=== PATIENT | female | born 1930 | race Hispanic/Latino ===

== ENCOUNTER 2018-05-25 07:52 | Observation (INO) | payer OTHER ==
[2018-05-23 14:00] VITALS: BP 142/60
[2018-05-23 14:21] LABS: BASOPHILS % (AUTO) 0.5 % (0.0-5.0); HEMATOCRIT 34.6 % (36-48); LYMPHOCYTES % (AUTO) 26.2 % (21.0-51.0); MEAN CORPUSCULAR HEMOGLOBIN 30.4 pg (27.0-33.0); MONOCYTES % (AUTO) 8.4 % (3.0-13.0); NEUTROPHILS % (AUTO) 63.9 % (40.0-77.0); PLATELET COUNT (AUTO) 197 K/uL (130-400); RED BLOOD CELL COUNT(AUTO) 3.64 MIL/uL (4.00-5.50); RED CELL DISTRIBUTION WIDTH 13.9 % (11.0-15.5); WHITE BLOOD COUNT (AUTO) 6.2 K/uL (4.8-10.8)
[2018-05-23 14:31] LABS: CREATININE 0.8 mg/dL (0.5-1.5); POTASSIUM 4.4 mmol/L (3.5-5.1)
[2018-05-23 14:35] LABS: INR 1.02 (0.85-1.15); PARTIAL THROMBOPLASTIN TIME 27.1 SEC (26.3-35.5); PROTHROMBIN TIME 10.7 SEC (9.6-11.6)
--- NOTE | 2018-05-23 14:45 | NUR ---
CONSENT PER PT, DR. OBANDO DID NOT EXPLAIN PROCEDURE TO HER AND DOES NOT HAVE COMPLETE UNDERSTANDING. PT WANTS TO TALK TO MD PRIOR TO PROCEDURE BEFORE SIGNING CONSENT.
--- NOTE | 2018-05-23 15:35 | NUR ---
IODINE ALLERGY EDIE GOODSON, BELKIS PAGED TO NOTIFY PT'S IODINE ALLERGY. WAITING FOR CALL BACK
--- NOTE | 2018-05-24 10:12 | NUR ---
NOTE EDIE GOODSON, PAC NOTIFIED PT'S ALLERGY TO CONTRAST IODINE, NO FURTHER ORDERS GIVEN.
[2018-05-25] VITALS (11 sets, daily range): BP systolic 84–150; BP diastolic 33–71
[~2018-05-25] VITALS: Ht 157.5 cm; Wt 60.8 kg
[~2018-05-25 07:52] MED LIST: AMLO5TAB9 PO; B&C/1TAB2 PO; CETI10TA57 PO; DOCU100T PO; ERGO500014 PO; LEVE750T10 PO; METO-408 PO; ROSU5TAB11 PO; SODIUM CHLORIDE 0.9% 1000ML 1,000 ML IV SCH
[2018-05-25] MEDS ORDERED: DiphenhydrAMINE HCL 50 MG/ML VIAL IV SCH (09:24)
[2018-05-25] MEDS ORDERED: METHYLPREDNISOLONE SOD SUCC 125MG/2ML VIAL IVP SCH (09:24)
[2018-05-25] MEDS: SODIUM CHLORIDE 0.9% 1000ML 1,000 ML IV SCH ×3 (09:29→21:05)
[2018-05-25] MEDS ORDERED: MIDAZOLAM HCL 1 MG/ML 2ML VIAL ONE ×3 (11:06→11:55)
[2018-05-25] MEDS ORDERED: MEPERIDINE-PF 25 MG/ML SYG ONE ×3 (11:07→11:55)
[2018-05-25] MEDS ORDERED: IOHEXOL-350 50ML VIAL IV ONE (11:15)
[2018-05-25] MEDS ORDERED: METHYLPREDNISOLONE SOD SUCC 125MG/2ML VIAL ONE (11:19)
[2018-05-25] MEDS ORDERED: DiphenhydrAMINE HCL 50 MG/ML VIAL ONE (11:19)
[2018-05-25] MEDS ORDERED: BUPIVACAINE/PF 0.25% 50ML VIAL IJ ONE (11:30)
[2018-05-25] MEDS ORDERED: CEFAZOLIN SODIUM 1 GM VIAL ONE (11:30)
[2018-05-25] MEDS ORDERED: LIDOCAINE HCL 1% MDV 50ML VIAL ONE (11:30)
[2018-05-25] MEDS ORDERED: OCTYL 2-CYANOACRYLATE 1 EACH TP ONE (12:39)
[2018-05-25] MEDS ORDERED: ONDANSETRON HCL 4 MG/2 ML VIAL IV PRN (13:00)
[2018-05-25] MEDS ORDERED: CETIRIZINE HCL 5 MG TABLET PO PRN (13:00)
[2018-05-25] MEDS ORDERED: TEMAZEPAM 30 MG CAP PO PRN (13:00)
[2018-05-25] MEDS ORDERED: ACETAMINOPHEN-CODEINE 300/30MG TAB PO PRN ×2 (13:00)
[2018-05-25] MEDS ORDERED: PHARMACY COMMUNICATION MISC SCH (13:00)
--- NOTE | 2018-05-25 13:30 | NUR ---
S/P PACEMAKER INSERTION AA&OX3. NO DISTRESS NOTED. UNLABORED RESPIRATIONS. PRESSURE DRESSING ON LEFT UPPER CHEST WALL. RADIAL PULSES PALPABLE. FINGER TIPS WARM AND PINK.
[2018-05-25] MEDS: DOCUSATE SODIUM 100 MG CAP PO SCH (14:15)
--- NOTE | 2018-05-25 18:07 | NUR ---
POST PACEMAKER CARE INSTRUCTED NOT TO ELEVATE LEFT ARM ABOVE SHOULDER LEVEL FOR 6 WEEKS TO PREVENT LEAD DISLODGEMENT. VERBALIZED UNDERSTANDING.
--- NOTE | 2018-05-25 19:24 | NUR ---
ASSESSMENT; PATIENT AAOX3, RESTING COMFORTABLY IN BED, DRESSING TO LEFT SHOULDER DRY AND INTACT, SLING IN PLACE, INSTRUCTED ON POST OP CARE, DO NOT RAISE LEFT ARM ABOVE HEAD FOR 6 WEEKS, WITH UNDERSTANDING VERBALIZED. PATIENT RESTING COMFORTABLY , DENIES PAIN, CALL RUIZ IN REACH,
[2018-05-25] MEDS ORDERED: ATORVASTATIN CALCIUM 10 MG TABLET PO SCH (21:00)
[2018-05-25] MEDS: METOPROLOL TARTRATE 25 MG TAB PO SCH (21:02)
[2018-05-25] MEDS ORDERED: CEFAZOLIN SODIUM 1 GM VIAL IVP SCH (23:55)
[2018-05-26] MEDS: SODIUM CHLORIDE 0.9% 1000ML 1,000 ML IV SCH ×2 (03:45→08:09)
[2018-05-26 04:03] VITALS: BP 131/58
[2018-05-26 07:00] VITALS: BP 129/59
[2018-05-26] MEDS: DOCUSATE SODIUM 100 MG CAP PO SCH ×2 (08:01→08:09)
[2018-05-26] MEDS: METOPROLOL TARTRATE 25 MG TAB PO SCH ×2 (08:01→08:09)
[2018-05-26] MEDS ORDERED: [UNRECOGNIZED DRUG - OTHER] PO SCH (09:00)
[2018-05-26] MEDS ORDERED: VIT E PO SCH (09:00)
[2018-05-26] MEDS ORDERED: ASPIRIN 81MG TAB.CHEW PO SCH (09:00)
[2018-05-26] MEDS ORDERED: ZINC PO SCH (09:00)
[2018-05-26 11:00] VITALS: BP 129/49
--- NOTE | 2018-05-26 11:51 | NUR ---
DR Danya HUNTER HERE TO SEE PATIENT. SPOKE TO PATIENT AND DAUGHTER AT BEDSIDE IN DETAIL REGARDING CARDIAC STATUS, PPM STATUS, PACEMAKER FUNCTION, MED REGIMEN. ALL QUESTIONS ANSWERED IN DETAIL. STAT BNP ORDERED. NOTIFIED LAB.
[2018-05-26] MEDS ORDERED: LEVETIRACETAM 250 MG TABLET PO SCH (12:00)
[2018-05-26] MEDS ORDERED: AMLODIPINE BESYLATE 5 MG TAB PO SCH (12:00)
[2018-05-26] MEDS ORDERED: DOXY100C2 PO (14:01)
[2018-05-26] MEDS ORDERED: ASPI-555 PO (14:01)
[2018-05-26] MEDS ORDERED: METO25TA3 PO (14:01)
--- NOTE | 2018-05-26 14:16 | NUR ---
BNP RESULTS/DISCHARGE REPORTED BNP RESULTS TO DR Danya HUNTER. NO NEW ORDERS. OK TO DISCHARGE. INSTRUCTIONS GIVEN IN DETAIL TO PATIENT AND DAUGHTER. INSTRUCTED NOT TO ELEVATE LEFT ARM ABOVE SHOULDER LEVEL X 6 WEEKS, WEAR ARM SLING, CALL DR OBANDO'S OFFICE ON MONDAY TO MAKE FOLLOW UP APPOINTMENT IN 7-10DAYS, KEEP INCISION DRESSING DRY & INTACT AND DO NOT REMOVE; MD WILL REMOVE DURING FOLLOW UP APPOINTMENT. INSTRUCTED ON S/S OF INFECTION AND TO REPORT ANY TO MD. MED REGIMEN REVIEWED IN DETAIL. PRESCRIPTION GIVEN TO PATIENT. ALL BELONGINGS GATHERED AND TAKEN WITH PATIENT AND DAUGHTER. DISCHARGED VIA WHEELCHAIR. NO DISTRESS NOTED UPON DISCHARGE.
[2018-06-01] MEDS ORDERED: ERGOCALCIFEROL (VITAMIN D2) 50,000 UNIT CAPSULE PO SCH (09:00)
== END 2018-05-26 14:20 | disposition home or self-care (01) ==
LOC: DAH 07:52 → DAHIP 07:53 → 2CH 13:37
PROVIDERS: ADMIT Internal Medicine; ATTEND Internal Medicine
DX: I49.5 Sick sinus syndrome (principal); R42 Dizziness and giddiness; R55 Syncope and collapse; I10 Essential (primary) hypertension; E78.00 Pure hypercholesterolemia, unspecified; G40.909 Epilepsy, unspecified, not intractable, without status epilepticus; I25.10 Atherosclerotic heart disease of native coronary artery without angina pectoris; I47.1 Supraventricular tachycardia; Z85.3 Personal history of malignant neoplasm of breast; Z90.12 Acquired absence of left breast and nipple; Z90.710 Acquired absence of both cervix and uterus; Z95.0 Presence of cardiac pacemaker; Z79.82 Long term (current) use of aspirin; Z79.899 Other long term (current) drug therapy
CPT/HCPCS: 33208; 36415 ×2; 71046; 80048; 83880; 85025; 85610; 85730; 93005; 96361; 96374; 96375; A4218; A4510; A4606; C1785; C1894; C1898 ×2; G0378 ×30; J0690 ×2; J1200 ×2; J2175 ×3; J2250 ×3; J2930 ×2; J3490 ×2; J7030 ×2; 99156; 99157; Q9967